=== PATIENT | male | born 1965 | race Caucasian/White ===

== ENCOUNTER 2018-02-12 15:43 | Inpatient (IN) | payer OTHER ==
[2018-02-12] MEDS ORDERED: fentaNYL PF VIAL 100 MCG/2 ML VIAL IV ×2 (16:30→18:00)
[2018-02-12 16:31] LABS: ADD MAN DIFF? NO
[2018-02-12 16:42] LABS: BASO # 0.1 x10^3/uL (0.0-0.2); BASO % 1 % (0-3); EOS # 0.2 x10^3/uL (0.0-0.7); EOS % 2 % (0-3); HEMATOCRIT 48.1 % (39.0-53.0); HEMOGLOBIN 16.6 g/dL (13.0-17.5); LYMPH # 2.8 x10^3/uL (1.0-4.8); LYMPH % 29 % (24-48); MEAN CORPUSCULAR HEMOGLOBIN 36 pg (25-35); MEAN CORPUSCULAR HGB CONC 35 g/dL (31-37); MEAN CORPUSCULAR VOLUME 103 fL (79-100); MONO % 10 % (0-9); NEUT # 5.9 x10^3uL (1.8-7.7); NEUT % 59 % (31-73); PLATELET COUNT 233 x10^3/uL (140-400); RED BLOOD COUNT 4.68 x10^6/uL (4.30-5.70); RED CELL DISTRIBUTION WIDTH 13.4 % (11.5-14.5); WHITE BLOOD COUNT 9.9 x10^3/uL (4.0-11.0)
[2018-02-12] MEDS: ASPIRIN CHEWABLE 81 MG TABLET. PO (16:50)
[2018-02-12] MEDS: ONDANSETRON PF 4 MG/2 ML VIAL. IV (16:50)
[2018-02-12] MEDS: IV NORMAL SALINE 1000ML BAG 1,000 ML IV ×2 (16:50→17:51)
[2018-02-12] MEDS: NITROGLYCERIN SUBLINGUAL 0.4 MG BOTTLE OF 25. SL ×3 (16:51→17:08)
[2018-02-12 16:55] LABS: ANION GAP 11 (6-14); BLOOD UREA NITROGEN 13 mg/dL (8-26); BUN/CREATININE RATIO 13 (6-20); CALCIUM 8.6 mg/dL (8.5-10.1); CARBON DIOXIDE 27 mmol/L (21-32); CHLORIDE 104 mmol/L (98-107); GFR 78.2; GLUCOSE 106 mg/dL (70-99); POTASSIUM 4.1 mmol/L (3.5-5.1); SODIUM 142 mmol/L (136-145)
[2018-02-12 17:01] LABS: ALBUMIN 3.8 g/dL (3.4-5.0); ALBUMIN/GLOBULIN RATIO 1.1 (1.0-1.7); ALK PHOS 100 U/L (46-116); ALT (SGPT) 44 U/L (16-63); MAGNESIUM 2.3 mg/dL (1.8-2.4); TOTAL BILIRUBIN 0.5 mg/dL (0.2-1.0); TOTAL PROTEIN 7.4 g/dL (6.4-8.2)
[2018-02-12 17:06] LABS: TROPONINI < 0.017 ng/mL (0.000-0.055)
[2018-02-12 17:09] LABS: CKMB MASS 1.1 ng/mL (0.0-3.6); CREATINE KINASE 115 U/L (39-308)
[2018-02-12 17:09] LABS: NT-PRO BNP 23 pg/mL (0-124)
[2018-02-12 17:32] LABS: AST (SGOT) 20 U/L (15-37)
[2018-02-12] MEDS ORDERED: ACETAMINOPHEN 325 MG TABLET. PO (18:00)
[2018-02-12] MEDS ORDERED: ONDANSETRON PF 4 MG/2 ML VIAL. IV (18:00)
[2018-02-12] MEDS ORDERED: NICOTINE POLACRILEX 2MG GUM PACKAGE of 12. BC (21:00)
[2018-02-12] MEDS ORDERED: NICOTINE 21MG PATCH. TD (21:00)
[2018-02-12 22:22] LABS: TROPONINI < 0.017 ng/mL (0.000-0.055)
[2018-02-13 00:07] LABS: TROPONINI < 0.017 ng/mL (0.000-0.055)
[2018-02-13] MEDS: IV NORMAL SALINE 1000ML BAG 1,000 ML IV ×2 (02:15→11:50)
[2018-02-13 03:40] LABS: ADD MAN DIFF? NO
[2018-02-13 05:07] LABS: BASO # 0.1 x10^3/uL (0.0-0.2); BASO % 1 % (0-3); EOS # 0.2 x10^3/uL (0.0-0.7); EOS % 3 % (0-3); HEMATOCRIT 42.8 % (39.0-53.0); HEMOGLOBIN 14.7 g/dL (13.0-17.5); LYMPH # 2.7 x10^3/uL (1.0-4.8); LYMPH % 32 % (24-48); MEAN CORPUSCULAR HEMOGLOBIN 36 pg (25-35); MEAN CORPUSCULAR HGB CONC 35 g/dL (31-37); MEAN CORPUSCULAR VOLUME 103 fL (79-100); MONO # 0.9 x10^3/uL (0.0-1.1); MONO % 11 % (0-9); NEUT # 4.7 x10^3uL (1.8-7.7); NEUT % 55 % (31-73); PLATELET COUNT 190 x10^3/uL (140-400); RED BLOOD COUNT 4.14 x10^6/uL (4.30-5.70); RED CELL DISTRIBUTION WIDTH 13.6 % (11.5-14.5); WHITE BLOOD COUNT 8.5 x10^3/uL (4.0-11.0)
[2018-02-13 05:19] LABS: ANION GAP 10 (6-14); BLOOD UREA NITROGEN 11 mg/dL (8-26); CARBON DIOXIDE 25 mmol/L (21-32); CHLORIDE 108 mmol/L (98-107); CREATININE 0.9 mg/dL (0.7-1.3); GFR 88.3; GLUCOSE 95 mg/dL (70-99); POTASSIUM 4.1 mmol/L (3.5-5.1); SODIUM 143 mmol/L (136-145)
[2018-02-13 09:39] LABS: CHOLESTEROL 194 mg/dL (0-200); HDLC 32 mg/dL (40-60); LDLC 87 mg/dL (0-100); NON-HDL CHOLESTEROL 162 mg/dL (0-129); TRIGLYCERIDES 376 mg/dL (0-150); VLDLC 75 mg/dL (0-40)
[2018-02-13 09:46] LABS: CHOLESTEROL/HDL RATIO 6.1
[2018-02-13 09:50] LABS: THYROID STIM HORMONE (TSH) 3.086 uIU/mL (0.358-3.74)
[2018-02-13] MEDS: THIAMINE 100 MG TABLET. PO (15:30)
[2018-02-13] MEDS: PANTOPRAZOLE 40 MG TABLET.DR. PO (16:00)
== END 2018-02-13 16:30 | disposition home or self-care (01) | DRG 392 ==
LOC: ER 15:43 → 5 NORTH 17:44
DX: K21.9 Gastro-esophageal reflux disease without esophagitis (principal); D75.89 Other specified diseases of blood and blood-forming organs; I20.9 Angina pectoris, unspecified; F10.20 Alcohol dependence, uncomplicated; E78.5 Hyperlipidemia, unspecified; F17.210 Nicotine dependence, cigarettes, uncomplicated; E86.0 Dehydration; F41.9 Anxiety disorder, unspecified; Z82.49 Family history of ischemic heart disease and other diseases of the circulatory system; Z91.19 Patient's noncompliance with other medical treatment and regimen; Z71.6 Tobacco abuse counseling
CPT/HCPCS: 36415; 71045; 78452; 80048; 80053; 80061; 82553; 83735; 83880; 84443; 84484; 85025; 93005; 93017; 96361; 96374; 96376; 99285; 99285-25; 99406; A9500; J2405; J7030